=== PATIENT | male | born 1955 | race Caucasian/White ===

== ENCOUNTER 2017-05-11 11:12 | Emergency (ER) | payer OTHER ==
[~2017-05-11] VITALS: Ht 188 cm; Wt 99.0 kg
[2017-05-11 11:13] VITALS: BP 132/73; PULSE 89; RESP 20; TEMP 97.7; O2SAT 97
--- NOTE | 2017-05-11 11:27 | PD ---
Physical Exam Time Seen by Provider: 11:17 Narrative 61-year-old male sent by Dr. Rock for admission. History of skin cancer and rectal cancer 2. Has worsening of confusion and shortness of breath since yesterday. Vomited one time this morning. Denies chest pain. Patient seen in triage. Vital signs reviewed. Patient awaiting medical bed. Data Data Last Documented VS Vital Signs Date Time Temp Pulse Resp B/P (MAP) Pulse Ox O2 Delivery O2 Flow Rate FiO2 05/11/17 11:13 97.7 89 20 132/73 (92) 97 Room Air MDM Supervised Visit with VINOD: Shannan Galarza May 11, 2017 11:27
[2017-05-11 12:06] VITALS: BP 122/66; PULSE 74; RESP 17; O2SAT 100
[2017-05-11] MEDS ORDERED: METF1000 PO (12:11)
[2017-05-11] MEDS ORDERED: GLIP5TAB8 PO (12:11)
[2017-05-11] MEDS ORDERED: CARV25TA PO (12:11)
[2017-05-11] MEDS ORDERED: OXYC-392 PO (12:11)
[2017-05-11] MEDS ORDERED: ISOS60TA PO (12:11)
[2017-05-11] MEDS ORDERED: FURO1TAB62 PO (12:11)
[2017-05-11] MEDS ORDERED: AMLO5 PO (12:11)
[2017-05-11] MEDS ORDERED: LISI-519 PO (12:11)
[2017-05-11] MEDS ORDERED: HYDR-3801 PO (12:11)
[2017-05-11] MEDS ORDERED: AMBI10TA PO (12:11)
[2017-05-11] MEDS ORDERED: MORPHINE SULFATE 8 MG/ML INJ IV PUSH ONE (13:00)
[2017-05-11] MEDS ORDERED: ONDANSETRON HCL 4 MG/2 ML VIAL IV PUSH ONE (13:00)
[2017-05-11 13:17] VITALS: BP 148/69; PULSE 73; RESP 18; TEMP 97.9; O2SAT 100
[2017-05-11 14:10] LABS: AUTOMATED NEUTROPHIL # 6.6 TH/MM3 (1.8-7.7); BASOPHIL # 0.1 TH/MM3 (0-0.2); BASOPHIL % 1.4 % (0.0-2.0); EOSINOPHIL # 0.1 TH/MM3 (0-0.4); EOSINOPHIL % 1.2 % (0.0-4.0); HEMATOCRIT 33.8 % (39.0-51.0); HEMO FLAGS DIFF FINAL; LYMPH % 22.1 % (9.0-44.0); LYMPHOCYTE # 2.2 TH/MM3 (1.0-4.8); MEAN CELL VOLUME 82.6 FL (80.0-100.0); MEAN CORPUSCULAR HEMOGLOBIN 28.4 PG (27.0-34.0); MEAN CORPUSCULAR HGB CONC 34.4 % (32.0-36.0); MONO % 8.6 % (0.0-8.0); NEUT % 66.7 % (16.0-70.0); PLATELET COUNT 198 TH/MM3 (150-450); RED BLOOD COUNT 4.09 MIL/MM3 (4.50-5.90); RED CELL DISTRIBUTION WIDTH 14.9 % (11.6-17.2); WHITE BLOOD COUNT 9.9 TH/MM3 (4.0-11.0)
[2017-05-11 14:29] LABS: BICARBONATE 20.6 MEQ/L (21.0-32.0)
[2017-05-11] MEDS ORDERED: SODIUM CHLOR 0.9% 1000 ML INJ 1,000 ML IV ONE (14:45)
--- NOTE | 2017-05-11 14:51 | EKG ---
Date Performed: 05/11/2017 Time Performed: 12:30:07 PTAGE: 61 years EKG: Sinus rhythm LEFT AXIS DEVIATION NONSPECIFIC T-WAVE ABNORMALITY ABNORMAL ECG NO PREVIOUS TRACING DOCTOR: Ruddy Bonds Interpretating Date/Time 05/11/2017 14:49:56
[2017-05-11 15:13] VITALS: BP 140/77; PULSE 71; RESP 17; TEMP 97.8; O2SAT 100
--- NOTE | 2017-05-11 15:40 | RADRPT ---
EXAM DATE/TIME: 05/11/2017 14:44 [facility] COMPARISON: No previous studies available for comparison. INDICATIONS : Back pain. MEDICAL HISTORY : Carcinoma, rectal. Hypertension. Diabetes mellitus type 2. SURGICAL HISTORY : Colostomy. Knee surgery. ENCOUNTER: Subsequent ACUITY: 1 day PAIN SCORE: 7/10 LOCATION: back. TECHNIQUE: Multiplanar multisequence MRI of the lumbar spine was performed without contrast. FINDINGS: Alignment: A D. alignment is intact without evidence of significant listhesis. Osseous structures and facet joints: Mild anterior wedging of L1 and L2 is noted. There is no subacute compression fracture. There is no s ubchondral edema or destructive changes. Mild facet arthropathy is seen at L5-S1. Intervertebral disc spaces: Degenerative disc disease ranging from mild to moderate in severity is noted. L1-2: Moderate degenerative disc disease with significant displaced narrowing and marginal spondylosi s. There is no evidence of epidural or neural foraminal disc herniation. There is no spinal stenosis. L2-3 and L3-4: Unremarkable. L4-5: Mild bilateral posterolateral disc bulging with mild foraminal effacement but no nerve root com pression. There is no evidence of epidural disc herniation. L5-S1: A central and left paracentral disc protrusion is identified. There is significant effacement of the left S1 nerve root as it enters the lateral recess. Degenerative changes seen in the disc with disc space narrowing and mild endplate reactive changes. Neurologic structures: Left S1 nerve root compression. CONCLUSION: 1. Small to moderate sized left paracentral disc protrusion with left S1 nerve root effacement. 2. Mild annular bulging L4-5 3. Moderate degenerative disease L1-2 with marginal spondylosis but no evidence of disc herniation. 4. No acute bony abnormality. Demian Lane MD on May 11, 2017 at 15:33 Board Certified Radiologist. This report was verified electronically.
--- NOTE | 2017-05-11 16:07 | PD ---
HPI Chief Complaint: Respiratory Symptoms Time Seen by Provider: 12:04 Travel History International Travel<30 days: No Contact w/Intl Traveler<30days: No Traveled to known affect area: No History of Present Illness HPI 61-year-old male came to the emergency room with left sided buttock pain radiating down the back of his left leg. Patient says he has history of sciatica and this pain is secondary to his sciatica which she has had for at least one year. He was quite irritable and did not want to answer many questions since he says he has answered all the questions many times repeatedly before I came in to several people. He asked me to look into his previous medical record in order to find his past medical history. I came out of the room and looked into his past medical record. The only substantial record that I found was a note from Dr. 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 Recent margins of the parotid gland came back positive on histopathology for cancer and hence he would require further surgery. At this point I decided to speak with Dr. John to get further history on the phone. He told me that he had seen the patient only once which was 2 days ago for the first time. Patient recently moved from [place] where he had his head and neck tumor resection. He had the discharge summary of the cancer specialist from there and was diagnosed with squamous cell carcinoma. Patient came to see him for left-sided jaw pain and the biopsy that was done yielded positive cancer. He was trying to get a surgeon to do the resection again. Also during his exam he noticed that patient had a large left inguinal lymphadenopathy. He was trying to get the lymph node biopsied. He did not know anything about the leg pain or back pain since patient never mentioned. He has also ordered a PET scan for this patient to be done as an outpatient. Patient's vital signs were within normal limits. [facility] Past Medical History Narrative Medical List of his past medical, surgical, social and family history is reviewed from the nursing note. Cancer: Yes (skin , rectal ) Cardiovascular Problems: Yes Diabetes: Yes (METFORMIN) Patient Takes Glucophage: Yes Diminished Hearing: No Hypertension: Yes Medical other: Yes (chronic kidney disease ) Psychiatric: Yes (sleep disorder) Integumentary: Yes (squamous cell carcinoma) Tetanus Vaccination: > 5 Years Influenza Vaccination: Yes Past Surgical History Abdominal Surgery: Yes (rectal sx 2008/ colostomy 2010) Other Surgery: Yes (face skin ca remover ) Social History Alcohol Use: No Tobacco Use: No Substance Use: No Allergies-Medications (Allergen,Severity, Reaction): Coded Allergies: No Known Allergies (Unverified , 05/11/17) Comments No known drug allergies. Reported Meds & Prescriptions Reported Meds & Active Scripts Active Reported Isosorbide Mononitrate ER (Isosorbide Mononitrate) 60 Mg Tab 60 Mg PO DAILY Lisinopril 5 Mg Tab 5 Mg PO DAILY Glipizide 5 Mg Tab 5 Mg PO DAILY Take 30 minutes before a meal Metformin (Metformin HCl) 1,000 Mg Tab 1,000 Mg PO BIDPC Lasix (Furosemide) 20 Mg Tab 20 Mg PO DAILY Ambien (Zolpidem Tartrate) 10 Mg Tab 10 Mg PO HS PRN Norvasc (Amlodipine Besylate) 5 Mg Tab 5 Mg PO DAILY Oxycodone (Oxycodone HCl) 5 Mg Tab 15 Mg PO Q6H PRN Hydralazine (Hydralazine HCl) 100 Mg Tab 100 Mg PO TID Take with meals Carvedilol 25 Mg Tab 25 Mg PO BID Narrative Medication List of his home medications reviewed from the nursing note. Review of Systems Except as stated in HPI: all other systems reviewed are Neg Musculoskeletal: Positive: Pain (radiculopathy) Physical Exam Narrative GENERAL: Awake, alert, in no obvious distress SKIN: Focused skin assessment warm/dry. HEAD: Atraumatic. Normocephalic. Left facial and ear disfigurement from previous head and neck surgery EYES: Pupils equal and round. No scleral icterus. No injection or drainage. ENT: No nasal bleeding or discharge. Mucous membranes pink and moist. NECK: Trachea midline. No JVD. CARDIOVASCULAR: Regular rate and rhythm. No murmur appreciated. RESPIRATORY: No accessory muscle use. Clear to auscultation. Breath sounds equal bilaterally. GASTROINTESTINAL: Abdomen soft, non-tender, nondistended. Hepatic and splenic margins not palpable. MUSCULOSKELETAL: No obvious deformities. No clubbing. No cyanosis. No edema. Negative SLR. Left-sided Garza's palsy NEUROLOGICAL: Awake and alert. No obvious cranial nerve deficits. Motor grossly within normal limits. Normal speech. PSYCHIATRIC: Appropriate mood and affect; insight and judgment normal. Data Data Last Documented VS Vital Signs Date Time Temp Pulse Resp B/P (MAP) Pulse Ox O2 Delivery O2 Flow Rate FiO2 05/11/17 15:13 97.8 71 17 140/77 (98) 100 Room Air Orders Orders Complete Blood Count With Diff (05/11/17 12:57) Basic Metabolic Panel (Bmp) (05/11/17 12:57) ^ Saline Lock (05/11/17 12:57) Morphine Inj (Morphine Inj) (05/11/17 13:00) Ondansetron Inj (Zofran Inj) (05/11/17 13:00) Electrocardiogram (05/11/17 12:30) Mri L Spine W/O Contrast (05/11/17 ) Sodium Chlor 0.9% 1000 Ml Inj (Ns 1000 M (05/11/17 14:45) Ed Discharge Order (05/11/17 15:46) Labs Laboratory Tests Test 05/11/17 13:10 White Blood Count 9.9 TH/MM3 Red Blood Count 4.09 MIL/MM3 Hemoglobin 11.6 GM/DL Hematocrit 33.8 % Mean Corpuscular Volume 82.6 FL Mean Corpuscular Hemoglobin 28.4 PG Mean Corpuscular Hemoglobin Concent 34.4 % Red Cell Distribution Width 14.9 % Platelet Count 198 TH/MM3 Mean Platelet Volume 10.9 FL Neutrophils (%) (Auto) 66.7 % Lymphocytes (%) (Auto) 22.1 % Monocytes (%) (Auto) 8.6 % Eosinophils (%) (Auto) 1.2 % Basophils (%) (Auto) 1.4 % Neutrophils # (Auto) 6.6 TH/MM3 Lymphocytes # (Auto) 2.2 TH/MM3 Monocytes # (Auto) 0.9 TH/MM3 Eosinophils # (Auto) 0.1 TH/MM3 Basophils # (Auto) 0.1 TH/MM3 CBC Comment DIFF FINAL Differential Comment Blood Urea Nitrogen 35 MG/DL Creatinine 2.31 MG/DL Random Glucose 144 MG/DL Calcium Level 9.3 MG/DL Sodium Level 140 MEQ/L Potassium Level 4.0 MEQ/L Chloride Level 107 MEQ/L Carbon Dioxide Level 20.6 MEQ/L Anion Gap 12 MEQ/L Estimat Glomerular Filtration Rate 29 ML/MIN MDM Medical Decision Making Medical Screen Exam Complete: Yes Emergency Medical Condition: Yes Medical Record Reviewed: Yes Interpretation(s) Twelve-lead EKG was reviewed by me. Normal sinus rhythm, left axis deviation, poor R-wave progression, nonspecific ST-T wave changes. Heart rate of 69 bpm. Differential Diagnosis Lumbar radiculopathy, cauda equina, musculoskeletal pain Narrative Course 4:25 PM blood test results show renal insufficiency which patient mentioned that he has history of and is chronic. No old labs to compare with. There was an MRI of his lumbar spine done which shows mild disc prolapse. Patient was medicated with morphine for the pain. I'm comfortable at this point discharging the patient home. However patient was adamant that he needs to be admitted since he is unable to take care of himself at home. I have asked ED case management to come and see him. They have explained to him that he does not meet admission criteria. I will do a [id number] request for home health care for the patient. He will be discharged home. Procedures EKG Prior to Arrival: No Diagnosis Primary Impression: Lumbar radiculopathy Additional Impression: Chronic pain Qualified Codes: G89.4 - Chronic pain syndrome Referrals: Primary Care Physician 1 week Additional Instructions: Please return to the ER if the condition worsens or any other new concerns. Otherwise take the medication as per the prescription direction. Continue taking your pain medications that have been prescribed by your primary care. Med/Other Pt SpecificInfo: Prescription(s) given Scripts Methylprednisolone Dosepak (Medrol Dosepak) 4 Mg Dspk 4 MG PO DIRECTED, #1 DSPK 0 Refills Per Pharmacist direction Prov: Ce Jones MD 05/11/17 Disposition: 01 DISCHARGE HOME Condition: Stable Ce Jones MD May 11, 2017 16:07
[2017-05-11] MEDS ORDERED: MEDR4PAK PO (16:28)
--- NOTE | 2017-05-11 16:35 | HHI.FF ---
Face to Face Verification Diagnosis: (1) Chronic pain (2) Lumbar radiculopathy Physical Therapy Order: Evaluate and Treat Occupational Therapy Order: Evaluate and Treat Home Health Aide Order: To Assist In: Bathing and personal care Chronic pain, lumbar radiculopathy that requires assistance as per the patient since he is unable to carry out his ADLs I have seen patient Boaz Nash on 05/11/17. My clinical findings support the need for the requested home health care services because: Ltd mobility - disease progression Limited ability to care for self Chronic pain, lumbar radiculopathy that requires assistance as per the patient since he is unable to carry out his ADLs I certify that my clinical findings support that this patient is homebound because: Unable to use public transportation Ce Jones MD May 11, 2017 16:35
[2017-05-11 17:07] VITALS: BP 130/77; TEMP 97.8
== END 2017-05-11 17:06 | disposition home or self-care (01) ==
LOC: NEPC 11:12
DX: M54.16 Radiculopathy, lumbar region (principal); G89.4 Chronic pain syndrome; E11.22 Type 2 diabetes mellitus with diabetic chronic kidney disease; I12.9 Hypertensive chronic kidney disease with stage 1 through stage 4 chronic kidney disease, or unspecified chronic kidney disease; N18.9 Chronic kidney disease, unspecified; Z79.84 Long term (current) use of oral hypoglycemic drugs; Z79.899 Other long term (current) drug therapy
CPT/HCPCS: 72148; 80048; 85025; 93005; 96361; 96374; 96375; 99285; J2270; J2405; J7030